=== PATIENT | male | born 1955 | race Caucasian/White ===

== ENCOUNTER → 2017-05-17 | Outpatient (REF) | payer OTHER, SELFPAY ==
[~2017-05-17] MED LIST: AMLO5TAB2 PO; AMOX875T2 PO; ATEN100T PO; CYMB60CA3 PO; HYDR12CA PO; LISI40TAB PO; MELA1TAB15 PO; NAPR500T3 PO; PRED20TA PO; TRAZ1TAB14 PO
== END ==
LOC: M SFHCLERA 11:22
PROVIDERS: ATTEND Physician Assistant
DX: R30.0 Dysuria (principal); R31.9 Hematuria, unspecified

== ENCOUNTER → 2017-05-17 | Outpatient (CLI) | payer OTHER, SELFPAY ==
--- NOTE | 2017-05-17 12:33 | REP ---
KUB: Two views. History: History of renal calculi. Comparison KUB study August 2006. Comparison abdominal CT study May 15, 2013. CT findings: There is a triangular 7 mm calculus superimposed on the lower pole left kidney. Above that there is a 4 mm calculus. There are with 3 to 4 intrarenal calculi on the right side. These are partially obscured by bowel gas. No definite ureteral stone is seen. There are phleboliths bilaterally in the pelvis. Impression: Multiple bilateral intrarenal calculi. The largest is at the lower pole left kidney measuring 7 mm. No definite ureteral stone seen. Signed by Kam Stokes MD 05/17/2017 12:25 P
== END ==
LOC: M LRY 11:33
PROVIDERS: ATTEND Physician Assistant
DX: N20.0 Calculus of kidney (principal)

== ENCOUNTER → 2017-07-11 | Outpatient (CLI) | payer SELFPAY ==
--- NOTE | 2017-07-11 19:43 | REP ---
Chest x-ray: Two views: History: Smoke and fumes exposure 6 days ago with difficulty breathing. Comparison chest x-ray May 20, 2013. Findings: The lungs are symmetrically aerated and free of infiltrate. The pleural angles are sharp. Heart size is normal and unchanged from the comparison study. Pulmonary vasculature is not increased. No significant bony abnormality is seen. Impression: No active disease. Signed by Kam Stokes MD 07/11/2017 08:08 P
== END ==
LOC: M WUC 18:51
PROVIDERS: ATTEND Physician Assistant
DX: R53.83 Other fatigue (principal); X08.8XXA Exposure to other specified smoke, fire and flames, initial encounter; Y92.9 Unspecified place or not applicable

== ENCOUNTER 2017-07-15 08:36 | Emergency (ER) | payer OTHER ==
[~2017-07-15] VITALS: Ht 175.3 cm; Wt 81.8 kg
[2017-07-15] MEDS ORDERED: LISI40TAB PO (08:44)
[2017-07-15] MEDS ORDERED: CYMB60CA3 PO (08:44)
[2017-07-15] MEDS ORDERED: AMLO5TAB2 PO (08:44)
[2017-07-15] MEDS ORDERED: ATEN100T PO (08:44)
[2017-07-15] MEDS ORDERED: predniSONE 20 MG TAB PO ONE (09:30)
[2017-07-15] MEDS ORDERED: KETOROLAC 60 MG/2 ML VIAL (J1885) IM ONE (09:30)
--- NOTE | 2017-07-15 09:59 | REP ---
Clinical: Paresthesia. Technique: Axial noncontrast images from the T12 through mid sacrum with coronal and sagittal re-formations. Comparison: 03/27/2016. Findings: The vertebral bodies are intact and there is no evidence for acute fracture / compression injury or subluxation. Alignment and lordosis maintained. There is mild/moderate multilevel degenerative disc disease including small anterior osteophytes as well as very minimal posterior disc bulges primarily noted at the L4-5 level. Facet arthropathy is also appreciated at the L4-5 and L5-S1 levels. There is no evidence for significant canal stenosis and the bilateral neural foramen appear patent throughout the visualized levels. There is moderate right-sided sacroiliitis with bridging osteophyte and periarticular sclerosis similar to prior examination. Impression: 1. No evidence for acute fracture / compression injury or subluxation. 2. Mild to moderate multilevel degenerative changes most pronounced at the L4-5 level without evidence for canal stenosis. 3. Neural foramen appear patent bilaterally. 4. Moderate right-sided sacroiliitis. Signed by Ben Robertson MD 07/15/2017 09:51 A
[2017-07-15] MEDS ORDERED: PRED20TA PO ×2 (10:09→10:27)
[2017-07-15] MEDS ORDERED: NAPR500T3 PO ×2 (10:09→10:27)
[2017-07-15 10:23] VITALS: BP 131/78
== END 2017-07-15 10:31 | disposition home or self-care (01) ==
LOC: M ED 08:36
DX: M54.16 Radiculopathy, lumbar region (principal); Z79.899 Other long term (current) drug therapy
CPT/HCPCS: 72131; 96372; 99282; J1885

== ENCOUNTER 2017-07-22 23:15 | Emergency (ER) | payer OTHER, SELFPAY ==
[~2017-07-22] VITALS: Ht 177.8 cm; Wt 180.0 kg
[~2017-07-22 23:15] MED LIST changes: -AMOX875T2 PO; -HYDR12CA PO; -MELA1TAB15 PO; -TRAZ1TAB14 PO
[2017-07-22] MEDS ORDERED: ONDANSETRON 4MG/2ML VIAL (J2405) As Ordered ONE (23:34)
[2017-07-23] MEDS ORDERED: NS 1,000 ML IV ONE ×2 (00:30)
[2017-07-23] MEDS ORDERED: MORPHINE 4 MG/ML 1ML SYRINGE IV PRN (00:30)
[2017-07-23] MEDS ORDERED: ONDANSETRON 4MG/2ML VIAL (J2405) IV ONE ×2 (00:30)
[2017-07-23 00:41] LABS: BASO % 0.2 % (0.0-1.0); EOS # 0.3 K/mm3 (0.0-0.50); EOS % 3.6 % (0.0-3.0); LARGE UNSTAINED CELL # 0.1 K/mm3 (0.0-0.4); LARGE UNSTAINED CELL % 1.3 % (0.0-4.0); LYMPH % 24.3 % (24.0-44.0); MEAN CORPUSCULAR HEMOGLOBIN 32.6 pg (27.0-33.0); MEAN CORPUSCULAR HGB CONC 34.1 g/dl (32.0-36.5); MEAN CORPUSCULAR VOLUME 95.8 fl (80.0-96.0); MONO # 0.8 K/mm3 (0.0-0.8); MONO % 9.8 % (0.0-5.0); NEUTROPHILS # 4.8 K/mm3 (1.8-7.7); NEUTROPHILS % 60.8 % (36.0-66.0); PLATELET COUNT, AUTOMATED 278 k/mm3 (150-450); RED CELL DISTRIBUTION WIDTH 12.1 % (11.5-14.5); WHITE BLOOD COUNT 7.9 K/mm3 (4.0-10.0)
[2017-07-23 00:42] LABS: ALBUMIN 3.9 GM/DL (3.2-5.2); ALKALINE PHOSPHATASE 92 U/L (45-117); ALT/SGPT 25 U/L (12-78); ANION GAP 5 MEQ/L (8-16); AST/SGOT 18 U/L (15-37); BILIRUBIN,DIRECT 0.2 MG/DL (0.0-0.2); BILIRUBIN,TOTAL 0.7 MG/DL (0.2-1.0); BLOOD UREA NITROGEN 27 MG/DL (7-18); CALCIUM LEVEL 9.3 MG/DL (8.8-10.2); CARBON DIOXIDE LEVEL 32 MEQ/L (21-32); CHLORIDE LEVEL 99 MEQ/L (98-107); GLOMERULAR FILTRATION RATE > 60.0 (>49); GLUCOSE, FASTING 93 MG/DL (80-110); POTASSIUM SERUM 4.4 MEQ/L (3.5-5.1); SODIUM LEVEL 136 MEQ/L (136-145); TOTAL PROTEIN 6.5 GM/DL (6.4-8.2)
[2017-07-23 01:36] LABS: INR 0.9
--- NOTE | 2017-07-23 01:50 | REPUSA ---
CLINICAL HISTORY: Abdominal pain. TECHNIQUE: Multiple axial, sagittal and coronal CT images were obtained through the abdomen and pelvi s without administration of oral or IV contrast material. COMMENTS: The liver is of uniform attenuation without mass or defect. There is no intra or extrahepatic biliary ductal dilatation. The spleen is normal. The gallbladder is within normal limits. The pancreas is of normal contour and attenuation characteristics. There is no evidence of adrenal mass. Bilateral nonobstructing renal stones. The largest measures 4 mm on the right side. The largest measu res that 7 mm on the left side. The kidneys are normal in size, shape and configuration. No ureteral calculi are identified. There is no hydroureter or hydronephrosis. There is no evidence for appendicitis. There is no bowel wall thickening. No evidence for small or la rge bowel obstruction. There is no evidence of abdominal ascites or lymphadenopathy. There is no evidence of intrinsic or extrinsic bladder mass. There is no pelvic ascites or lymphadeno dejan. Moderate large bowel fecal stasis. Mild diffuse thickening of the wall of the bladder. Moderate large bowel fecal stasis. Images of the lung bases show no evidence of pleural or parenchymal mass. There are no pleural effusi ons. The bony structures are free of lytic or blastic lesions. Multilevel degenerative changes are seen in volving the thoracolumbar spine. Scattered calcifications are seen involving the aorta and major branches compatible with atherosclero sis. IMPRESSION: Bilateral nonobstructing nephrolithiasis. Mild diffuse thickening of the wall of the bladder. Underdistention, spasm versus mild cystitis. Large bowel fecal stasis. Mildly prominent left extrarenal pelvis. Thank you for your kind referral of this patient.
[2017-07-23] MEDS ORDERED: PRED20TA PO (02:15)
[2017-07-23 02:27] VITALS: BP 136/88
[2017-07-23] MEDS ORDERED: NORCO 5/325MG TABLET (BULK FOR ED) PO ONE (02:30)
== END 2017-07-23 02:38 | disposition home or self-care (01) ==
LOC: M ED 23:15
DX: M54.9 Dorsalgia, unspecified (principal)
CPT/HCPCS: 74176; 80048; 80076; 81001; 83690; 85025; 85610; 85730; 87086; 93041; 96374; 96375; 96376; 99284; J2405

== ENCOUNTER 2017-07-29 10:52 | Observation (INO) | payer MEDICARE, OTHER, SELFPAY ==
[~2017-07-29] VITALS: Ht 175.3 cm; Wt 81.4 kg
[2017-07-29] MEDS ORDERED: NS 1,000 ML IV SCH (10:56)
[2017-07-29 11:32] LABS: BASO % 0.3 % (0.0-1.0); EOS # 0.1 K/mm3 (0.0-0.50); EOS % 0.6 % (0.0-3.0); LARGE UNSTAINED CELL # 0.1 K/mm3 (0.0-0.4); LARGE UNSTAINED CELL % 0.6 % (0.0-4.0); LYMPH # 1.1 K/mm3 (1.5-4.5); LYMPH % 5.7 % (24.0-44.0); MEAN CORPUSCULAR HGB CONC 34.4 g/dl (32.0-36.5); MEAN CORPUSCULAR VOLUME 95.9 fl (80.0-96.0); MONO # 1.1 K/mm3 (0.0-0.8); MONO % 5.9 % (0.0-5.0); NEUTROPHILS # 16.7 K/mm3 (1.8-7.7); NEUTROPHILS % 86.9 % (36.0-66.0); PLATELET COUNT, AUTOMATED 319 k/mm3 (150-450); RED CELL DISTRIBUTION WIDTH 11.7 % (11.5-14.5); WHITE BLOOD COUNT 19.2 K/mm3 (4.0-10.0)
[2017-07-29 11:34] LABS: VENOUS BASE EXCESS 3.1 (-2.0-2.0); VENOUS O2 SATURATION 56.5 % (60.0-80.0); VENOUS PARTIAL PRESSURE CO2 60.4 mmHg (38.0-50.0); VENOUS PARTIAL PRESSURE O2 29.1 mmHg (30.0-50.0); VENOUS STANDARD HCO3 25.9 MEQ/L
[2017-07-29 12:02] LABS: OSMOLALITY SERUM 296 MOSM/KG (280-301)
[2017-07-29 12:19] LABS: ALBUMIN 3.7 GM/DL (3.2-5.2); ALBUMIN/GLOBULIN RATIO 1.23 (1.00-1.93); ALKALINE PHOSPHATASE 101 U/L (45-117); ALT/SGPT 108 U/L (12-78); ANION GAP 10 MEQ/L (8-16); AST/SGOT 450 U/L (15-37); BILIRUBIN,DIRECT 0.2 MG/DL (0.0-0.2); BILIRUBIN,TOTAL 0.7 MG/DL (0.2-1.0); BLOOD UREA NITROGEN 21 MG/DL (7-18); CALCIUM LEVEL 8.5 MG/DL (8.8-10.2); CARBON DIOXIDE LEVEL 29 MEQ/L (21-32); CHLORIDE LEVEL 103 MEQ/L (98-107); CREATININE FOR GFR 1.16 MG/DL (0.70-1.30); GLOMERULAR FILTRATION RATE > 60.0 (>49); GLUCOSE, FASTING 127 MG/DL (80-110); POTASSIUM SERUM 4.4 MEQ/L (3.5-5.1); SODIUM LEVEL 142 MEQ/L (136-145); TOTAL PROTEIN 6.7 GM/DL (6.4-8.2)
[2017-07-29] MEDS ORDERED: SODIUM CHLORIDE 0.9% 1000 ML IV ONE (12:45)
[2017-07-29] MEDS ORDERED: MELA1TAB15 PO (13:00)
[2017-07-29] MEDS ORDERED: TRAZ1TAB14 PO (13:00)
[2017-07-29] MEDS ORDERED: HYDR12CA PO (13:00)
[2017-07-29 13:01] LABS: INR 0.86
--- NOTE | 2017-07-29 13:54 | REP ---
CT BRAIN WITHOUT CONTRAST: CT brain is performed without IV contrast. The ventricles normal in size and position with no midline shift. Schumacher/white differentiation is well maintained. There is no acute hemorrhage. There is no extra-axial fluid collection. No mass effect is seen. Bone window examination is unremarkable except for moderate fluid in the left maxillary sinus. IMPRESSION: Moderate left maxillary sinusitis. Otherwise negative noncontrast CT brain. Signed by Jensen Schumacher MD 07/29/2017 07:17 P
[2017-07-29 14:04] LABS: METHADONE URINE NEGATIVE (NEGATIVE)
[2017-07-29] MEDS ORDERED: ONDANSETRON 4MG/2ML VIAL (J2405) IV PRN (14:15)
--- NOTE | 2017-07-29 14:28 | REP ---
PELVIS AND LEFT HIP: AP view of the pelvis and two views of the left hip are performed and demonstrate no fracture, dislocation or intrinsic bone disease. IMPRESSION: No fracture or dislocation. Signed by Jensen Schumacher MD 07/29/2017 07:17 P
[2017-07-29 14:51] LABS: ERYTHROCYTE SEDIMENTATION RATE 3 mm/hr (0-20)
[2017-07-29 15:37] VITALS: BP 151/88
[2017-07-29] MEDS: NS 1,000 ML IV SCH ×2 (15:45→22:00)
[2017-07-29] MEDS: AUGMENTIN 875 MG TAB PO SCH ×2 (16:56→22:25)
[2017-07-29] MEDS: ENOXAPARIN 40 MG/0.4 ML SYRINGE (J1650) SC SCH (16:57)
[2017-07-29] MEDS ORDERED: ACETAMINOPHEN TAB 650MG DOSE (2X325MG) PO PRN (17:15)
[2017-07-29] MEDS ORDERED: ACETAMINOPHEN TAB 650MG DOSE (2X325MG) PO ONE (17:15)
--- NOTE | 2017-07-29 17:42 | ECGEPIP ---
Stationary ECG Study [facility] Test Date: 2017-07-29 Pat Name: JERE DIAZ Department: Room: 0103 Gender: M Rig Hand: CHRISTINA : 1955 Requested By: GUSTAVO Nelson Order Number: [id number] Reading MD: Melo Blanco Measurements Intervals [place] Rate: 92 P: 36 MI: 160 QRS: -47 QRSD: 93 T: 25 QT: 351 QTc: 436 Interpretive Statements Normal sinus rhythm Left atrial enlargement Left anterior fascicular block Persistent S wave in anterolateral leads suggests pulmonary disease No significant change when compared to prior tracing of earlier this date Electronically Signed On 07-29-2017 17:42:01 EDT by Melo Blanco
[2017-07-29] MEDS ORDERED: KETOROLAC 30 MG/ML VIAL (J1885) IV ONE (17:45)
[2017-07-29 17:52] LABS: BASO % 0.2 % (0.0-1.0); EOS % 0.3 % (0.0-3.0); LARGE UNSTAINED CELL # 0.1 K/mm3 (0.0-0.4); LARGE UNSTAINED CELL % 0.7 % (0.0-4.0); LYMPH # 1.3 K/mm3 (1.5-4.5); LYMPH % 7.7 % (24.0-44.0); MEAN CORPUSCULAR HEMOGLOBIN 33.4 pg (27.0-33.0); MEAN CORPUSCULAR HGB CONC 34.8 g/dl (32.0-36.5); MEAN CORPUSCULAR VOLUME 95.9 fl (80.0-96.0); MONO # 0.9 K/mm3 (0.0-0.8); MONO % 5.7 % (0.0-5.0); NEUTROPHILS % 85.5 % (36.0-66.0); PLATELET COUNT, AUTOMATED 265 k/mm3 (150-450); RED CELL DISTRIBUTION WIDTH 11.7 % (11.5-14.5); WHITE BLOOD COUNT 16.4 K/mm3 (4.0-10.0)
[2017-07-29] MEDS: amLODIPine 5 MG TAB PO SCH (18:10)
[2017-07-29] MEDS: DULoxetine 30 MG CAP (CYMBALTA) PO SCH (18:10)
[2017-07-29] MEDS: LACTOBACILLUS ACIDOPHILUS CAP (BACID) PO SCH (18:10)
[2017-07-29] MEDS: ATENOLOL 25 MG TAB PO SCH (18:11)
--- NOTE | 2017-07-29 19:40 | REPUSA ---
MRI of the brain Clinical history: syncope, memory loss. Technique: Multiecho multiplanar MRI images of the brain were obtained without administration of cont rast. Diffusion weighted images with ADC mapping was also obtained. Findings: The ventricles and sulci are symmetric bilaterally. The brain parenchyma demonstrates mild T2 hyperin tensity in the periventricular and subcortical white matter bilaterally. There is no midline shift, m ass effect, or extra-axial fluid collection. The midline intracranial structures do not demonstrate a ny gross abnormalities. The cervical cranial junction is intact. The orbits are unremarkable. There i s a large air fluid level in the left maxillary sinus. The other visualized paranasal sinuses and mas toid air cells are clear. The osseous structures and superficial soft tissues are unremarkable. The v ascular structures demonstrate appropriate flow voids. Impression: 1. No acute infarct or hemorrhage. 2. Mild chronic small vessel ischemic disease.
[2017-07-29] MEDS ORDERED: traZODone 50 MG TAB PO SCH (21:00)
[2017-07-29] MEDS ORDERED: MELATONIN (PATIENT'S OWN MED) PO SCH (21:00)
--- NOTE | 2017-07-29 21:55 | HPE ---
DATE OF ADMISSION: 07/29/2017 PRIMARY CARE PROVIDER: Dr. Wellington PHYSICAL MEDICINE AND REHABILITATION ([facility]) PHYSICIAN: Dr. Donohue CHIEF COMPLAINT: Disorientation, fall. HISTORY OF PRESENT ILLNESS: This is a 61-year-old male with a prior history of L3 to L5 degenerative joint disease, laminectomy and discectomy in September 2015, chronic nephrolithiasis with a 7 mm stone on the left and 4 mm on the right, left third metacarpophalangeal fracture, right thyroid nodule with negative thyroid uptake scan with a history of substance abuse, according to his for several years and has been arrested from stealing a patient's opioids while doing physical therapy (PT) in rehabilitation, has been passing out on and off over the years due to substance abuse and has erratic behavior under substance, according to the , which has worsened over the past 2 months. The states that the patient refuses to take her during the physician visits and when she does come she notices that tramadol that are dispensed with 30 to 60 tablets are usually consumed in three days' time at home with the patient acting confused and erratic. He was brought in by family today due to slurred speech and a fall on his left side that happened yesterday. According to the , the patient has had issues with pain killers and had been seeking drugs both with multiple emergency room visits and urgent care visits. He then hides the medications and has used many different pharmacies in the past to obtain them. Yesterday in the morning he was out helping his son get ready for their move to [place]. He has been loading up the horse trailer. Around noontime to 1:00 p.m. he appeared to be less coherent and shaky into the early evening hours. The patient passed out at home in the bedroom and according to his of 22 years, the patient has a known history of passing out due to substance abuse, which has happened more frequently due to increased stressors in the family with them moving to [place] in the following week. 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 The patient has been known to go to the emergency room and urgent care complaining of chronic back pain and noting that he has a prior history of kidney stones. According to EMR records, the patient has been found to visit the emergency room every 2 weeks starting in August 2016 -- August 25, 2016, October 02, 2016, May of this year complaining of back pain and kidney stones. Three visits in the emergency room in July -- 07/11, 07/15, 07/22. Each time with prescription for Percocet and followup with primary care physician, whom the says usually gives him tramadol. After passing out yesterday, the then asked the son to count the son's Suboxone, which the son is currently on a tapering dose for the past 1-1/2 years. As he was counting his medications, they had noted seven to eight tablets were missing. According to the patient's , the patient's home medications have already been emptied out as well. The patient was brought in to the emergency room after a fall at home, sustaining left leg pain. X-rays were negative for fracture. Cervical spine and lumbar spine x-rays were unremarkable. CT of the head showed no acute bleeding or hemorrhage. He has a moderate left maxillary sinusitis. White count on arrival was 19,000. He was afebrile at 98.6 at 10:52 a.m. He was found [place] [address]. He was placed on intravenous fluids. Creatinine was normal at 1.16. Hospitalist service was called for admission for what appeared to be drug induced confusion and rhabdomyolysis secondary to a fall at home. PAST MEDICAL HISTORY: Polysubstance abuse with the patient being arrested in 2005, about 10 years ago, for stealing patient's opioids while doing physical therapy (PT), L3 to L5 degenerative joint disease with laminectomy, discectomy, nephrolithiasis with 4 mm on the right and 7 mm on the left. Left third metacarpophalangeal fracture, right thyroid nodule with negative thyroid uptake scan. PAST SURGICAL HISTORY: L3 to L4 laminectomy and discectomy. HOME MEDICATIONS: - hydrochlorothiazide 12.5 mg daily - Lisinopril 40 mg daily - melatonin 10 mg at night - Norvasc 5 mg daily - atenolol 100 mg daily - Cymbalta 120 mg daily - trazodone 150 mg at night We were unable to confirm the patient's medication list with Dr. Wellington's office as it is currently closed. ALLERGIES: No known drug allergies. FAMILY HISTORY: Noncontributory. 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 According to the , he has been abusing both prescription medications and marijuana for about 22 years of their marriage. The patient denies any alcohol abuse. Currently on their way to [place] where they will be residing. Their house has been placed on the market and they will be closing on the house this year. He goes to [facility] and has a counselor. Per , she had mentioned to him that he often times does not tell the truth with his substance abuse. REVIEW OF SYSTEMS: As per history of present illness. 12-point system otherwise negative. PHYSICAL EXAMINATION: VITAL SIGNS: Temperature 98.6, pulse 114, respiratory rate 20, blood pressure 133/94, 97% on room air. GENERAL: The patient is awake, alert oriented to his name. Oriented to [facility]. He is oriented to [place], [place]. He is answering questions appropriately. Face is symmetric. No nasolabial fold changes. No facial drooping. Pupils are round and reactive. Extraocular muscles are intact. Normocephalic, atraumatic. No sensory disturbance. Speech is fluent. Neck is supple. No neck rigidity. There is negative Brudzinski and Kernig sign. Tenderness around the maxillary sinuses bilaterally. LUNGS: Clear to auscultation. There is no wheezing or rales. HEART: S1, S2. Sinus rhythm. ABDOMEN: Soft, nontender, nondistended. Positive bowel sounds. No costovertebral angle tenderness. EXTREMITIES: Lower extremities have no cyanosis, clubbing or pitting edema. No rashes noted. NEUROLOGIC: Negative Babinski bilaterally. Deep tendon reflexes are intact. Biceps, triceps, ankle jerks are normal. No pronator drift. 5/5 motor function bilaterally, upper and lower extremities. LABORATORY DATA: White count 19.2, hemoglobin 16, hematocrit 48, platelet count 319, 86% neutrophils, 5.7% lymphocytes. Repeat complete blood count (CBC): White count 16.3, hemoglobin 16, hematocrit 44, platelet count 265. Sodium 142, potassium 4.4, chloride 103, bicarbonate 29, BUN 21, creatinine 1.16, glucose 127. Lactic acid 1.3. Calcium 8.5, total bilirubin 0.7, direct bilirubin 0.2, AST 450, ALT 108, alkaline phosphatase 101. Total CK 13,956, MB fraction is 132, troponin is less than 0.02. Myoglobin is greater than 500. TSH is 0.267, albumin of 3.7. Two sets of blood cultures are pending. Urine culture is pending. Urinalysis: 1+ protein, 3+ blood, negative nitrites, negative bilirubin, 1 WBC. Urine toxicology screen is negative for opiates, methadone, barbiturates, phencyclidine, amphetamine, benzodiazepine, cocaine, cannabinoids. Ethyl alcohol is 0.003. Acetaminophen less than 2. Salicylate is less than 1.7. EKG showed sinus rhythm, left atrial enlargement, left anterior fascicular block, persistent S wave in anterolateral leads suggesting pulmonary disease. No significant change from prior EKG. IMAGING STUDIES: CT of the head shows moderate left maxillary sinusitis, negative noncontrast CT of the brain. Hip x-ray and pelvic x-ray with no fracture or dislocation. MRI of the brain shows no acute pathology. ASSESSMENT AND PLAN: This is a 61-year-old male with history of L3 to L5 laminectomy with chronic back pain, multiple visits to urgent care, as well as the emergency room documented at [facility] in August 2016, September 2016, 05/17/2017, and three visits in July for similar complaints of chronic back pain and kidney stones, all with prescriptions for Percocet at discharge from the emergency room, follows with Dr. Donohue, according to the , of Physical Medicine and Rehabilitation (PM R), as well as Dr. Wellington in the office, the patient had been arrested in 2005 for stealing a patient's opioids while doing physical therapy (PT) and has been using on and off substances and has had erratic behavior for the past 20 years, according to the . The patient was brought in by family due to erratic behavior yesterday and had fallen and passing out. He appeared to be shaky and incoherent, according to the family, behavior that is a common occurrence over the past few years but has worsened over the past 2 months. He denies any fevers, but has complained of chills. Was brought into the emergency room after a fall at home and was found to have acute rhabdomyolysis. Mentation has improved during his hospital stay within a few hours of arrival. The patient was found to have maxillary sinusitis and was given Augmentin. Lactic acid was negative. The patient was admitted for further evaluation as observation. The patient will be assigned to Dr. Jon Coy at 10:00 p.m. on 07/29/2017. IMPRESSION: 1. Acute metabolic encephalopathy. According to the , the patient has been using recreational substances for the past 22 years and has episodes of confusion, altered mental status, gait instability. This has been noted to be worsening in the past 2 months while the family is preparing to go to [place]. She has noticed increasing visits to the emergency room with complaint of chronic back pain and kidney stones, for which he receives Percocet tablets. The patient objectively did have CT showing sinusitis, for which he was given Augmentin. His mentation has improved. He is able to provide history adequately and appears to be oriented to place, time, and person. He denies any recent travel, exposure to ticks or mosquito bites. He has not been exposed to anyone who was febrile or has any acute infections. He currently denies any dysuria, urgency, frequency, cough, or shortness of breath. He only complains of left leg pain after his fall at home. If the patient were to have a fever of 101 or 102, it might be reasonable to obtain a lumbar puncture to rule out meningitis. CT of the head is unremarkable, as is MRI of the brain. 2. Acute rhabdomyolysis secondary to recent fall. The patient has been admitted for intravenous antibiotics. Urine myoglobin is positive. We will continue to monitor clinical improvement and monitor the patient's creatinine. 3. History of nephrolithiasis, unchanged with repeat imaging, appears to be stable. He has no complaints of hematuria, dysuria, urgency, or frequency. 4. Chronic back pain with history of L4-5 laminectomy. The patient had received physical therapy (PT) in the past and had been placed on tramadol by his primary care physician. We will need to confirm the patient's home medication list in the morning with Dr. Wellington's office. According to the , the patient has been exhibiting pain killer seeking behavior and has been having multiple visits to an urgent care and emergency room, documented on our [facility] system, which shows visits to the emergency room in August 2016, September 2016, visit to urgent care May 17, 2017, as well as three visits in July to urgent care and emergency room resulting in Percocet prescriptions being given. According to the , the patient goes to different pharmacies, does not inform other providers that pain medications have recently been prescribed. At this time, he currently has no significant pain. He has been given intravenous Toradol times one dose. We will avoid further doses as it can cause acute kidney injury in light of renal failure from acute rhabdomyolysis. We will consult pain management in the morning. The patient's urine drug screen is unremarkable. 5. Abnormal EKG with left anterior fascicular block, left atrial enlargement. 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 His chest x-ray shows cardiomegaly. The patient will need outpatient referral to cardiology to further evaluate the cardiomegaly and left anterior fascicular block, abnormal EKG. It may be worthwhile to do cardiac stress test. 6. Low grade fever. RN had informed me that as of 1315 the patient has had a low grade temperature of 100.2 to 100.4. At this time, the patient has been given Augmentin for sinusitis. His mentation has improved to baseline, according to the patient's . I have discussed with the patient and the about the lumbar puncture to complete our full workup. However, at this time, the patient's is not giving consent and the patient appears to be stable, therefore we will defer unless the patient has a fever of 101 or 102 temperature, worsening white count or clinical decompensation. DISPOSITION: The patient is moving to [place] next week. I have been informed by the that he has no primary care physician in that area. I have encouraged her to obtain the records from [facility] and bring them with her, including the EKG once he is medically stable to be released.
[2017-07-29 22:00] VITALS: BP 112/60
[2017-07-29 22:53] LABS: GLUCOSE CSF 74 MG/DL (40-75)
[2017-07-29 22:54] LABS: APPEARANCE, CSF HAZY (CLEAR); COLOR, CSF PINK (COLORLESS); CSF DIFF IF INDICATED? YES (NO); CSF TUBE# CELL CNT TUBE 4; RBC CSF AUTO 1586 /mm3 (0-0); WBC CSF AUTO 13 /mm3 (0-10)
[2017-07-29 22:55] LABS: CSF DILUENT LOT # 6333
[2017-07-29 22:57] LABS: APPEARANCE, CSF CLEAR (CLEAR); COLOR, CSF COLORLESS (COLORLESS); CSF DIFF IF INDICATED? NO (NO); CSF TUBE# CELL CNT TUBE 1; RBC CSF AUTO 3 /mm3 (0-0); WBC CSF AUTO 1 /mm3 (0-10)
[2017-07-29 22:58] LABS: CSF DILUENT LOT # 6333
[2017-07-30] MEDS ORDERED: NS 1,000 ML IV SCH (00:15)
[2017-07-30 06:00] VITALS: BP 100/55
--- NOTE | 2017-07-30 06:12 | REP ---
CHEST, PORTABLE: AP portable view of the chest is performed and compared to prior studies dating back to 12/25/2009. There is mild cardiomegaly. There is no acute infiltrate. Mediastinal silhouette is unchanged. IMPRESSION: Cardiomegaly. No acute infiltrate. Signed by Jensen Schumacher MD 07/30/2017 05:22 P
[2017-07-30 06:51] LABS: BASO % 0.2 % (0.0-1.0); EOS # 0.2 K/mm3 (0.0-0.50); EOS % 1.4 % (0.0-3.0); LARGE UNSTAINED CELL # 0.1 K/mm3 (0.0-0.4); LYMPH # 1.1 K/mm3 (1.5-4.5); LYMPH % 10.5 % (24.0-44.0); MEAN CORPUSCULAR HEMOGLOBIN 33.7 pg (27.0-33.0); MEAN CORPUSCULAR HGB CONC 34.7 g/dl (32.0-36.5); MEAN CORPUSCULAR VOLUME 97.3 fl (80.0-96.0); MONO # 0.7 K/mm3 (0.0-0.8); MONO % 6.8 % (0.0-5.0); NEUTROPHILS # 8.7 K/mm3 (1.8-7.7); NEUTROPHILS % 80.1 % (36.0-66.0); PLATELET COUNT, AUTOMATED 223 k/mm3 (150-450); RED CELL DISTRIBUTION WIDTH 11.8 % (11.5-14.5); WHITE BLOOD COUNT 10.8 K/mm3 (4.0-10.0)
--- NOTE | 2017-07-30 06:52 | REP ---
CERVICAL SPINE SERIES: Nine views of the cervical spine are performed. C7 is not optimally seen on the multiple lateral views obtained. No definite fracture or dislocation is seen. There is no prevertebral soft tissue swelling. There is mild diffuse narrowing and sclerosis at the posterior facet joints. Odontoid views are also suboptimal. IMPRESSION: No definite fracture or dislocation visualized. However, recommend CT to completely exclude cervical spine fracture. Signed by Jensen Schumacher MD 07/30/2017 05:26 P
--- NOTE | 2017-07-30 07:03 | REP ---
LUMBOSACRAL SPINE: Five views lumbosacral spine are performed. There is no compression fracture or malalignment with normal lumbar lordosis. There is mild diffuse spurring. There is slight disc space narrowing at L4-5 with mild subchondral sclerosis. There is sclerosis at the posterior facet joints particularly at L4-5 and L5-S1. The posterior elements are intact. IMPRESSION: Mild degenerative changes. No fracture or dislocation. Signed by Jensen Schumacher MD 07/30/2017 05:26 P
[2017-07-30 07:21] LABS: ALBUMIN 2.6 GM/DL (3.2-5.2); ALKALINE PHOSPHATASE 57 U/L (45-117); ALT/SGPT 90 U/L (12-78); ANION GAP 5 MEQ/L (8-16); AST/SGOT 272 U/L (15-37); BILIRUBIN,DIRECT 0.2 MG/DL (0.0-0.2); BILIRUBIN,TOTAL 1.1 MG/DL (0.2-1.0); BLOOD UREA NITROGEN 19 MG/DL (7-18); CALCIUM LEVEL 7.8 MG/DL (8.8-10.2); CARBON DIOXIDE LEVEL 30 MEQ/L (21-32); CHLORIDE LEVEL 106 MEQ/L (98-107); GLOMERULAR FILTRATION RATE > 60.0 (>49); GLUCOSE, FASTING 82 MG/DL (80-110); POTASSIUM SERUM 4.4 MEQ/L (3.5-5.1); SODIUM LEVEL 141 MEQ/L (136-145); T UPTAKE 43 % (33-40); THYROXINE (T4) 6.2 UG/DL (4.5-12.0); TOTAL PROTEIN 5.2 GM/DL (6.4-8.2)
[2017-07-30 07:35] LABS: ALBUMIN 2.6 GM/DL (3.2-5.2); ALBUMIN/GLOBULIN RATIO 1.04 (1.00-1.93); ALKALINE PHOSPHATASE 57 U/L (45-117); ALT/SGPT 93 U/L (12-78); ANION GAP 6 MEQ/L (8-16); AST/SGOT 277 U/L (15-37); BILIRUBIN,TOTAL 1.1 MG/DL (0.2-1.0); BLOOD UREA NITROGEN 20 MG/DL (7-18); CALCIUM LEVEL 7.7 MG/DL (8.8-10.2); CARBON DIOXIDE LEVEL 29 MEQ/L (21-32); CHLORIDE LEVEL 106 MEQ/L (98-107); CREATININE FOR GFR 0.85 MG/DL (0.70-1.30); GLOMERULAR FILTRATION RATE > 60.0 (>49); GLUCOSE, FASTING 86 MG/DL (80-110); POTASSIUM SERUM 4.4 MEQ/L (3.5-5.1); SODIUM LEVEL 141 MEQ/L (136-145); TOTAL PROTEIN 5.1 GM/DL (6.4-8.2)
[2017-07-30 08:00] VITALS: BP 104/60
--- NOTE | 2017-07-30 08:27 | ECGEPIP ---
Stationary ECG Study [facility] - ED Test Date: 2017-07-29 Pat Name: JERE DIAZ Department: Room: - Gender: M Public Relations Counselor: marquez : 1955 Requested By: April Flores Order Number: [id number] Reading MD: Sami Tobias Measurements Intervals [place] Rate: 104 P: 32 UT: 169 QRS: -56 QRSD: 85 T: 24 QT: 339 QTc: 447 Interpretive Statements SINUS TACHYCARDIA POSSIBLE LEFT ATRIAL ENLARGEMENT PATTERN CONSISTENT WITH PULMONARY DISEASE LEFT ANTERIOR FASCICULAR BLOCK NO PRIORS Electronically Signed On 07-30-2017 8:27:25 EDT by Sami Tobias
[2017-07-30] MEDS ORDERED: AMOX875T2 PO (08:37)
[2017-07-30] MEDS: DULoxetine 30 MG CAP (CYMBALTA) PO SCH (08:51)
[2017-07-30] MEDS: ATENOLOL 25 MG TAB PO SCH (08:51)
[2017-07-30 08:52] VITALS: BP 100/55
[2017-07-30] MEDS: AUGMENTIN 875 MG TAB PO SCH (08:52)
[2017-07-30] MEDS: amLODIPine 5 MG TAB PO SCH (08:52)
[2017-07-30] MEDS: LACTOBACILLUS ACIDOPHILUS CAP (BACID) PO SCH (08:53)
[2017-07-30] MEDS: ENOXAPARIN 40 MG/0.4 ML SYRINGE (J1650) SC SCH (08:55)
--- NOTE | 2017-07-30 13:46 | IPN ---
DATE: 07/30/2017 Mr. Mari is feeling well today. He has no complaints of pain, chest pain or shortness of breath. He admits to having taken Suboxone yesterday. He says that he is ashamed of that fact. He has thoughts of doing rehabilitation, but he is currently in the process of moving and would like to go home today. Temperature 99.3. Pulse 59. Respiratory rate 18. Blood pressure 100/60. 96% in room air. Ins and outs notable for a positive fluid balance of 315. He is awake, appropriately interactive, with somewhat flattened affect. Mucous membranes moist. Significant other is at the bedside. Breathing is symmetrical. I:E ratio 1:3. No accessory muscle use. Speaking in complete sentences. He is not tachycardic. Abdomen soft, doughy, nontender. White cell count 10.8, hemoglobin 13.2 and platelets 223. BUN 20, creatinine 0.85. CK is 6,000 down from a previous maximum of almost 14,000. Hepatitis panel is negative. CSF is unremarkable. ASSESSMENT: This is a 61-year-old who presented with intentional overdose resulting in metabolic encephalopathy. PLAN: 1. To discharge him home today. I have referred him and encouraged him to seek assistance with his opiate dependence. 2. The patient has acute rhabdomyolysis which is improving. I would prefer to keep the patient in hospital for IV fluids, but he has declined and at this point I believe it is not unreasonable to send him home, although I would be happier if he stayed for IV fluid. I did discuss this with him at some length. 3. The patient has suspected acute sinusitis and will be treated with a short course of Augmentin.
[2017-07-31] MEDS ORDERED: INFLUENZA QUADRIVALENT PF VACCINE 0.5ML SYRINGE (90686) IM ONE (09:00)
== END 2017-07-30 12:15 | disposition home or self-care (01) ==
LOC: M ED 10:52 → M ED INP 14:15 → M MS5PR 15:37
PROVIDERS: ADMIT Internal Medicine; ATTEND Internal Medicine
DX: T50.7X2A Poisoning by analeptics and opioid receptor antagonists, intentional self-harm, initial encounter (principal); G93.41 Metabolic encephalopathy; M62.82 Rhabdomyolysis; Z91.81 History of falling; J01.90 Acute sinusitis, unspecified; Z79.899 Other long term (current) drug therapy
CPT/HCPCS: 36415; 70450; 70551; 71010; 72052; 72110; 73502; 80053; 80307; 81001; 81002; 82140; 82550; 82553; 82803; 82945; 83605; 83874; 83930; 84157; 84436; 84443; 84479; 85025; 85610; 85652; 86140; 86705; 86709; 86803; 87015; 87040; 87070; 87086; 87205; 87340; 87496; 87498; 87529; 87798; 89050; 89051; 93005; 93041; 96372; 96374; 99291; G0480; J1650; J1885